=== PATIENT | male | born 1975 | race Caucasian/White ===

== ENCOUNTER 2022-09-01 07:56 | Outpatient (CLI) | payer BC, SELFPAY ==
[2022-09-01 11:31] LABS: Albumin* 4.7 g/dL (3.3-5.0)
[2022-09-01 11:32] LABS: Chloride* 105 mmol/L (96-114); Potassium* 4.6 mmol/L (3.6-5.1); Sodium* 141 mmol/L (135-149)
[2022-09-01 11:34] LABS: Bilirubin Total* 0.7 mg/dL (0.1-1.5); Carbon Dioxide* 27 mmol/L (20-32); Cholesterol* 236 mg/dL (90-199); Creatinine* 0.9 mg/dL (0.5-1.5); Estimated Glomerular Filt Rate 105 ml/min
[2022-09-01 11:35] LABS: Alanine Aminotransferase* 44 U/L (4-50); Alkaline Phosphatase* 59 U/L (40-150); Aspartate Amino Transferase* 47 U/L (12-35); Blood Urea Nitrogen* 17 mg/dL (5-24); Calcium* 9.6 mg/dL (8.4-10.6); Glucose* 102 mg/dL (60-115); Total Protein* 7.5 g/dL (6.0-8.3); Triglycerides* 66 mg/dL (40-149)
[2022-09-01 11:51] LABS: HDL Cholesterol* 72 mg/dL (>=40); LDL Cholesterol Calculated 151 mg/dL (<100)
[2022-09-03 18:36] LABS: Testosterone, Adult Male 469 ng/dL (300-890)
== END 2022-09-01 07:57 | disposition home or self-care (01) ==
PROVIDERS: PCP Family Medicine; Visit Provider Family Medicine
DX: Z00.00 Encounter for general adult medical examination without abnormal findings (principal); R53.83 Other fatigue; E29.1 Testicular hypofunction; R03.0 Elevated blood-pressure reading, without diagnosis of hypertension; Z13.6 Encounter for screening for cardiovascular disorders
CPT/HCPCS: 80053; 80061; 84403; 84443

== ENCOUNTER 2022-11-06 08:40 | Outpatient (CLI) | payer BC, SELFPAY | END 2022-11-06 08:41 | disposition home or self-care (01) | LOC: OP CLINIC 08:42 | PROVIDERS: PCP Family Medicine; Visit Provider Internal Medicine | DX: Z12.11 Encounter for screening for malignant neoplasm of colon (principal) | CPT/HCPCS: 45378; J2250; J3010 ==

== ENCOUNTER 2024-03-03 15:37 | Outpatient (CLI) | payer BC, SELFPAY ==
--- OUTSIDE RECORDS SUMMARY | 2024-03-03 15:46 | XMS_ITS | Referral Summary ---
Author Organization [facility] Address [address] [place] [address] Care Team Providers Care Appointment Coordinator Name Role Phone Elsewhere, Pcp Primary Care Provider Unavailabl e Source Comments Patient records contain information from all sites at [facility]. For routine questions regarding patient records, call [phone] during business hours, M-F 8:00 AM - 5:00 PM Central Time. Record requests for emergency care only can be directed to [phone] at any time.[facility] Allergies No known active allergies Medications Medication Sig Dispensed Refills Start Date End Date Status MULTIVITAMIN ORAL Take by mouth. Act damián UNABLE TO FIND Med Name: Occu Marcie Ac tive Active Problems No known active problems Immunizations Name Administration Dates Next Due Tdap 06/28/2022 Social History Tobacco Use Types Packs/Day Years Used Date Smoking Tobacco: Former Cigarettes 1 22 0 05/04/2000 - 05/04/2022 Tobacco Cessation:Counseling Given: Yes Humiliation, Afraid, Rape, and Kick questionnair e Answer Date Recorded Within the last year, have y ou been afraid of your partner or ex-partner? No 07/06/2022 Within the last year, have y ou been humiliated or emotionally abused in other ways by your partner or ex-partner? No Within the last year, have y ou been kicked, hit, slapped, or otherwise physically hurt by your partner or ex-partner? No 07/06/2022 Within the last year, have y ou been raped or forced to have any kind of sexual activity by your partner or ex-partner? No 07/06/2022 Social Connection and Isolat ion Panel [NHANES] Answer Date Recorded In a typical week, how many times do you talk on the phone with family, friends, or neighbors? More than three times a week 07/06/2022 How often do you get togethe r with friends or relatives? Once a week 07/06/2022 How often do you attend chur ch or zoroastrian services? 1 to 4 times per year 07/06/2022 Do you belong to any clubs o r organizations such as holiness groups, unions, fraternal or athletic groups, or school groups? Yes 07/06/2022 How often do you attend meet ings of the clubs or organizations you belong to? 1 to 4 times per year 07/06/2022 Are you , , di vorced, , never , or living with a partner? 07/06/2022 AUDIT-C Answer Date Recorded Q1: How often do you have a drink containing alc ohol? 2-3 times a week 07/06/2022 Q2: How many drinks containi ng alcohol do you have on a typical day when you are drinking? 1 or 2 07/06/2022 Q3: How often do you have si x or more drinks on one occasion? Less than monthly 07/06/2022 Overall Financial Resource Strain (CARDIA) Answe r Date Recorded How hard is it for you to pa y for the very basics like food, housing, medical care, and heating? Somewhat hard 07/06/2022 [facility] - Occupational Stress Questionnaire Answer Date Recorded Do you feel stress - tense, restless, nervous, or anxious, or unable to sleep at night because your mind is troubled all the time - these days? To some extent 07/06/2022 Exercise Vital Sign Answer Date Recorde d On average, how many days pe r week do you engage in moderate to strenuous exercise (like a brisk walk)? 5 days 07/06/2022 On average, how many minutes do you engage in exercise at this level? 60 min 07/06/2022 Hunger Vital Sign Answer Date Recorded Within the past 12 months, y ou worried that your food would run out before you got the money to buy more. Never true 07/06/20 22 Within the past 12 months, t he food you bought just didn't last and you didn't have money to get more. Never true 07/06/2022 PRAPARE - Transportation Answer Date Re corded In the past 12 months, has l ack of transportation kept you from medical appointments or from getting medications? No 06/14 In the past 12 months, has l ack of transportation kept you from meetings, work, or from getting things needed for daily living? No 07/06/2022 Housing Stability Vital Sign Answer Airan e Recorded In the last 12 months, was t here a time when you were not able to pay the mortgage or rent on time? No 07/06/2022 In the last 12 months, how many places have you lived? 2 07/06/2022 In the last 12 months, was t here a time when you did not have a steady place to sleep or slept in a long-term (including now)? No 07/06/2022 Nutrition Answer Date Recorded Nutrition: EVOO Fat Source No 07/06 On average, how many serving s of fruits and vegetables do you eat per day (serving size is equal to 1 cup or approximately the size of a tennis ball)? 2-3 07/06/2022 Dental Answer Date Recorded Dental: Regular Dentist Yes 07/06/20 Employment Answer Date Recorded Employment status Employed and actively working without restrictions 07/06/2022 Education Answer Date Recorded What is the highest level of school you have completed or the highest degree you have received? Some college, no degree 07/06/2022 Sex and Gender Information Value Date Recorded Sex Assigned at Male 07/07/2022 6:21 AM CDT Gender Identity Male 07/07/2022 6:21 AM CDT Sexual Orientation Lesbian or [place] 07/07/2022 6: 21 AM CDT Last Filed Vital Signs Vital Sign Reading Time Taken Comments Blood Pressure 139/87 07/07/2022 4:04 PM CDT Pulse 71 07/07/2022 4:04 PM CDT Temperature 36.9 ??C (98.4 ??F) 07/07/2022 4:04 PM CD T Respiratory Rate 25 06/28/2022 12:00 AM CDT Oxygen Saturation 96% 07/07/2022 4:04 PM CDT Inhaled Oxygen Concentration - - Weight 93.4 kg (206 lb) 07/07/2022 4:04 PM CDT Height 177.8 cm (5' 10) 07/07/2022 4:04 PM CDT Body Mass Index 29.56 07/07/2022 4:04 PM CDT Plan of Treatment Not on file Care Teams Appointment Coordinator Relationship Specialty Start Date End Date Elsewhere, Pcp PCP - General Internal Medicine 06/23/23
--- OUTSIDE RECORDS SUMMARY | 2024-03-03 15:46 | XMS_ITS | Clinical Summary ---
Author Organization [facility] Address [address] [place] [address] Care Team Providers Care Internet Sales Associate Name Role Phone Elsewhere, Pcp Primary Care Provider Unavailabl e Source Comments Patient records contain information from all sites at [facility]. For routine questions regarding patient records, call [phone] during business hours, M-F 8:00 AM - 5:00 PM Central Time. Record requests for emergency care only can be directed to [phone] at any time.[facility] Allergies No known active allergies Medications Medication Sig Dispensed Refills Start Date End Date Status MULTIVITAMIN ORAL Take by mouth. Act damián UNABLE TO FIND Med Name: Occu Marcie Ac tive Active Problems No known active problems Immunizations Name Administration Dates Next Due Tdap 06/28/2022 Family History Medical History Relation Name Comments No Known Problems Brother No Known Problems Mother No Known Problems Sister 1 No Known Problems Sister 2 Cancer Sister 3 Relation Name Status Comments Brother Alive Father Alive Mother Alive Sister 1 Alive Sister 2 Alive Sister 3 Social History Tobacco Use Types Packs/Day Years [...] 07/06/2022 How often do you attend chur or worship services? 1 to 4 times per year 07/06/2022 Do you belong to any clubs o r organizations such as confucianist groups, unions, fraternal or athletic groups, or [...] medical care, and heating? Somewhat hard 07/06/2022 [facility] Occupat ional Health - Occupational Stress [...] money to buy more. Never true 07/06/20 Within the past 12 months, t he [...] No 07/06/2022 Housing Stability Vital Sign Answer Arian e Recorded In the last 12 months, [...] place to sleep or slept in a fpc (including now)? No 07/06/2022 Nutrition Answer Date [...] 07/07/2022 4:04 PM CDT Plan of Treatment Health Maintenance Due Date Last Done Comments CT Colonography 1973 Cologuard 1973 Colonoscopy 1973 Colorectal Cancer Screening 1973 FIT 1973 Fasting Glucose for Diabetes Screening 1973 HIV Screening 1973 Hepatitis C Screening 1973 Lipid (Cholesterol) Screening 1973 Lung Cancer Screening 1973 Hepatitis B Vaccines (1 of 3 - 19+ 3-dose series) 1992 COVID-19 Vaccine (4 - 2022-2 4 season) 2023 11/01/2021, 12/28/2020, 12/07/2020 Influenza Vaccine (#1) 2023 Depression Screening (Annual PHQ-2) 09/13/2023 Zoster Vaccines (1 of 2) 11/12/2023 DTaP,Tdap,and Td Vaccines (2 - Td or Tdap) 06/28/2032 06/28/2022 Pneumococcal vaccine (0-64 years) Aged Out No longer eligible b ased on patient's age to complete this topic Care Teams Internet Sales Associate Relationship Specialty Start Date End Date Elsewhere, Pcp PCP - General Internal Medicine 06/23/23
--- OUTSIDE RECORDS SUMMARY | 2024-03-03 15:46 | XMS_ITS ---
Author Organization [facility] Address [address] [place] [address] Care Team Providers Care Director Client Name Role Phone Unavailable Unavailable Unavailable Surgery Details Not on file Complications Check Surgery Details section. Procedure Estimated Blood Loss Check Surgery Details section. Procedure Findings Check Surgery Details section. Procedure Specimens Taken Check Surgery Details section.
== END 2024-03-03 15:38 | disposition home or self-care (01) ==
LOC: NFLDREF 15:44
PROVIDERS: PCP Family Medicine; Visit Provider Registered Nurse
DX: R10.9 Unspecified abdominal pain (principal); R53.83 Other fatigue
CPT/HCPCS: 80053

== ENCOUNTER 2024-03-13 08:05 | Outpatient (CLI) | payer BC, SELFPAY ==
--- OUTSIDE RECORDS SUMMARY | 2024-03-14 18:46 | XMS_ITS | Clinical Summary ---
Author Organization [facility] Address [address] [place] [address] Care Team Providers Care Chute Loader Name Role Phone Elsewhere, Pcp Primary Care Provider Unavailabl e Source Comments Patient records contain information from all sites at [facility]. For routine questions regarding patient records, call [phone] during business hours, M-F 8:00 AM - 5:00 PM Central Time. Record requests for emergency care only can be directed to [phone] at any time.[facility] Allergies No known active allergies Medications [...] How often do you attend chur or evangelical services? 1 to 4 times per year 07/06/2022 Do you belong to any clubs o r organizations such as denominational groups, unions, fraternal or athletic groups, or [...] medical care, and heating? Somewhat hard 07/06/2022 [facility] Occupat ional Health - Occupational Stress [...] place to sleep or slept in a usp (including now)? No 07/06/2022 Nutrition Answer Date [...] 2022-2 4 season) 2023 11/01/2021, 12/28/2020, 12/07/2020 Depression Screening (Annual PHQ-2) 09/13/2023 Zoster Vaccines (1 of 2) 11/12/2023 Influenza Vaccine (#1) 2024 DTaP,Tdap,and Td Vaccines (2 - Td or Tdap) 06/28/2032 06/28/2022 Pneumococcal vaccine (0-64 years) Aged Out No longer eligible b ased on patient's age to complete this topic Care Teams Chute Loader Relationship Specialty Start Date End Date Elsewhere, Pcp PCP - General Internal Medicine 06/23/23
--- OUTSIDE RECORDS SUMMARY | 2024-03-14 18:46 | XMS_ITS ---
Author Organization [facility] Address [address] [place] [address] Care Team Providers Care Dye Reel Operator Name Role Phone Unavailable Unavailable Unavailable Surgery Details Not on file Complications Check Surgery Details section. Procedure Estimated Blood Loss Check Surgery Details section. Procedure Findings Check Surgery Details section. Procedure Specimens Taken Check Surgery Details section.
--- OUTSIDE RECORDS SUMMARY | 2024-03-14 18:46 | XMS_ITS | Referral Summary ---
Author Organization [facility] Address [address] [place] [address] Care Team Providers Care Wood Milling Machine Operator Name Role Phone Elsewhere, Pcp Primary Care Provider Unavailabl e Source Comments Patient records contain information from all sites at [facility]. For routine questions regarding patient records, call [phone] during business hours, M-F 8:00 AM - 5:00 PM Central Time. Record requests for emergency care only can be directed to [phone] at any time.[facility] Allergies No known active allergies Medications [...] often do you attend chur ch or mu-ism services? 1 to 4 times per year 07/06/2022 Do you belong to any clubs o r organizations such as hinduism groups, unions, fraternal or athletic groups, or [...] medical care, and heating? Somewhat hard 07/06/2022 [facility] Occupat ional Health - Occupational Stress [...] place to sleep or slept in a alf (including now)? No 07/06/2022 Nutrition Answer Date [...] of Treatment Not on file Care Teams Wood Milling Machine Operator Relationship Specialty Start Date End Date Elsewhere, Pcp PCP - General Internal Medicine 06/23/23
== END 2024-03-13 08:06 | disposition home or self-care (01) ==
LOC: NFLDREF 03-14 18:45
PROVIDERS: PCP Family Medicine; Referring Provider Family Medicine; Visit Provider Registered Nurse
DX: Z13.220 Encounter for screening for lipoid disorders (principal)
CPT/HCPCS: 80061

== ENCOUNTER 2024-03-24 13:30 | Outpatient (CLI) | payer BC, SELFPAY ==
--- OUTSIDE RECORDS SUMMARY | 2024-03-24 13:32 | XMS_ITS | Referral Summary ---
Author Organization [facility] Address [address] [place] [address] Care Team Providers Care Ear Pull Machine Operator Name Role Phone Elsewhere, Pcp Primary Care Provider Unavailabl e Source Comments Patient records contain information from all sites at [facility]. For routine questions regarding patient records, call [phone] during business hours, M-F 8:00 AM - 5:00 PM Central Time. Record requests for emergency care only can be directed to [phone] at any time.[facility] Allergies No known active allergies Medications [...] often do you attend chur ch or denominational services? 1 to 4 times per year 07/06/2022 Do you belong to any clubs o r organizations such as christianity groups, unions, fraternal or athletic groups, or [...] medical care, and heating? Somewhat hard 07/06/2022 [facility] ional Health - Occupational Stress [...] place to sleep or slept in a prison (including now)? No 07/06/2022 Nutrition Answer Date [...] of Treatment Not on file Care Teams Ear Pull Machine Operator Relationship Specialty Start Date End Date Elsewhere, Pcp PCP - General Internal Medicine 06/23/23
--- OUTSIDE RECORDS SUMMARY | 2024-03-24 13:32 | XMS_ITS ---
Author Organization [facility] Address [address] [place] [address] Care Team Providers Care Info Analyst Name Role Phone Unavailable Unavailable Unavailable Surgery Details Not on file Complications Check Surgery Details section. Procedure Estimated Blood Loss Check Surgery Details section. Procedure Findings Check Surgery Details section. Procedure Specimens Taken Check Surgery Details section.
--- OUTSIDE RECORDS SUMMARY | 2024-03-24 13:32 | XMS_ITS | Clinical Summary ---
Author Organization [facility] Address [address] [place] [address] Care Team Providers Care Dry Dip Worker Name Role Phone Elsewhere, Pcp Primary Care Provider Unavailabl e Source Comments Patient records contain information from all sites at [facility]. For routine questions regarding patient records, call [phone] during business hours, M-F 8:00 AM - 5:00 PM Central Time. Record requests for emergency care only can be directed to [phone] at any time.[facility] Allergies No known active allergies Medications Medication [...] How often do you attend chur or voodoo services? 1 to 4 times per year 07/06/2022 Do you belong to any clubs o r organizations such as jew groups, unions, fraternal or athletic groups, or [...] medical care, and heating? Somewhat hard 07/06/2022 [facility] Occupat ional Health - Occupational [...] place to sleep or slept in a halfway (including now)? No 07/06/2022 Nutrition Answer Date [...] age to complete this topic Care Teams Dry Dip Worker Relationship Specialty Start Date End Date Elsewhere, Pcp PCP - General Internal Medicine 06/23/23
--- NOTE | 2024-03-24 14:00 | CRLHL7_ITS ---
For Patients: As a result of the Century Cures Act, medical imaging exams and procedure reports are released immediately into your electronic medical record. You may view this report before your referring provider. If you have questions, please contact your health care provider. Indication: abd pain, mainly left side Technique: CT Abdomen/Pelvis W [id number] Please note that all CT scans at this facility use dose modulation, iterative reconstruction, and/or weight-based dosing when appropriate to reduce radiation dose to as low as reasonably achievable. Comparison: None Findings: The lung bases are clear. No pleural effusion. Mild focal fatty deposition within the liver adjacent to the falciform ligament. The spleen is within normal limits. Normal pancreas. The kidneys are unremarkable. No stone, perinephric stranding or hydronephrosis. Small bilateral adrenal adenomas. No retroperitoneal adenopathy. Gallbladder is incompletely distended. No hiatal hernia. Small bowel loops appear unremarkable. The bladder is normal. The ureters are within normal limits. Normal appendix. No bowel obstruction, free air, free fluid or abscess. 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 Facet degeneration lower lumbar spine. Multiple Schmorl`s nodes are present at the lower thoracic spine and thoracolumbar junction. No fracture. Impression: Unremarkable CT of the abdomen and pelvis without cause for left-sided abdominal pain. Please note that all CT scans at this facility use dose modulation, iterative reconstruction, and/or weight-based dosing when appropriate to reduce radiation dose to as low as reasonably achievable. Dictated by Benji Valenzuela MD @ 03/25/2024 8:01:06 PM (Electronically Signed)
== END 2024-03-24 13:31 | disposition home or self-care (01) ==
LOC: CT 13:31
PROVIDERS: PCP Family Medicine; Visit Provider Registered Nurse
DX: R10.9 Unspecified abdominal pain (principal)
CPT/HCPCS: 74177; Q9967